=== PATIENT | female | born 1945 | race Caucasian/White ===

== ENCOUNTER → 2022-12-20 | Outpatient (CLI) | payer MEDICARE, BC ==
[~2022-12-20] MED LIST: ALPR0.5T7; CLIN-144; FURO20TA4; LEVO75TA; METO50TA15; ONDA8TAB13 PO; PANT40TA2 PO; POT
== END ==
LOC: CARD 13:05
PROVIDERS: ATTEND Nurse Practitioner Family
DX: J32.9 Chronic sinusitis, unspecified (principal)
CPT/HCPCS: 93005

== ENCOUNTER 2022-12-24 22:33 | Emergency (ER) | payer MEDICARE, BC ==
[2022-12-24] MEDS ORDERED: ALPR0.5T7 (23:07)
[2022-12-24] MEDS ORDERED: POT (23:07)
[2022-12-24] MEDS ORDERED: LEVO75TA (23:07)
[2022-12-24] MEDS ORDERED: FURO20TA4 (23:07)
[2022-12-24] MEDS ORDERED: CLIN-144 (23:07)
[2022-12-24] MEDS ORDERED: METO50TA15 (23:07)
[2022-12-24] MEDS ORDERED: ONDA8TAB13 PO (23:33)
[2022-12-24] MEDS ORDERED: PANT40TA2 PO (23:33)
== END 2022-12-24 22:46 | disposition left against medical advice (07) ==
LOC: EDUNIT# 22:33 → ER 22:34
DX: R10.9 Unspecified abdominal pain (principal)

== ENCOUNTER 2022-12-24 22:55 | Emergency (ER) | payer MEDICARE, BC ==
[~2022-12-24] VITALS: Ht 14.9 cm; Wt 65.8 kg
[2022-12-24] MEDS ORDERED: METO50TA15 (23:07)
[2022-12-24] MEDS ORDERED: CLIN-144 (23:07)
[2022-12-24] MEDS ORDERED: FURO20TA4 (23:07)
[2022-12-24] MEDS ORDERED: ALPR0.5T7 (23:07)
[2022-12-24] MEDS ORDERED: LEVO75TA (23:07)
[2022-12-24] MEDS ORDERED: POT (23:07)
[2022-12-24] MEDS ORDERED: ONDANSETRON 4 MG ORAL DISSOLVE TABLET SL STA (23:28)
[2022-12-24] MEDS ORDERED: LIDOCAINE 2% VISCOUS 15 ML UDC PO ONE (23:30)
[2022-12-24] MEDS ORDERED: ANTACID SUSPENSION 30 ML UDC PO ONE (23:30)
[2022-12-24] MEDS ORDERED: PANTOPRAZOLE 40 MG TABLET PO ONE (23:30)
[2022-12-24] MEDS ORDERED: PANT40TA2 PO (23:33)
[2022-12-24] MEDS ORDERED: ONDA8TAB13 PO (23:33)
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
[2022-12-25 00:08] VITALS: BP 146/99
== END 2022-12-25 00:08 | disposition home or self-care (01) ==
LOC: EDUNIT# 22:55 → ER 22:57
DX: R11.2 Nausea with vomiting, unspecified (principal); F41.9 Anxiety disorder, unspecified; F17.210 Nicotine dependence, cigarettes, uncomplicated; Z79.899 Other long term (current) drug therapy
CPT/HCPCS: 99283

== ENCOUNTER 2023-02-22 08:02 | Emergency (ER) | payer MEDICARE, BC ==
[~2023-02-22] VITALS: Ht 150 cm; Wt 43.0 kg
--- NOTE | 2023-02-22 08:12 | ED General ---
General Chief Complaint: General Problems/Pain Stated Complaint: STOMACH CRAMPS | WEAKNESS Source of Information: Patient Exam Limitations: No Limitations History of Present Illness Date Seen by Provider: Feb 22, 2023 Time Seen by Provider: 08:03 Initial Comments 77-year-old female presents the emergency department today for vomiting. She states symptoms started a couple days ago and corresponds to when she started taking antibiotics for urinary tract infection. She states that she always vomits when she takes antibiotics. She denies any fevers or chills but does have diffuse abdominal cramping. No focal abdominal tenderness. She is quite tearful during our history, exam. When asked why she is crying she states "I am scared." When asked what she is scared as she states "just all of it." Is having some mild dysuria. No changes in her bowels. No Vaginal symptoms All other systems reviewed and negative except documented per HPI. Voice recognition software was used to help create this chart Allergies and Home Medications Allergies Coded Allergies: Penicillins (Verified Allergy, Unknown, 12/25/22) aspirin (Verified Allergy, Unknown, 12/25/22) cyclosporine (Verified Allergy, Unknown, 12/25/22) Patient Home Medication List Home Medication List Reviewed: Yes Alprazolam (Alprazolam) 0.5 Mg Tablet, (Reported) Entered as Reported by: FRANCES BRIGHT on 12/24/222306 Clindamycin HCl (Clindamycin HCl) 300 Mg Capsule, (Reported) Entered as Reported by: FRANCES BRIGHT on 12/24/222306 Furosemide (Furosemide) 20 Mg Tablet, (Reported) Entered as Reported by: FRANCES BRIGHT on 12/24/222306 Levothyroxine Sodium (Synthroid) 75 Mcg Tablet, (Reported) Entered as Reported by: FRANCES BRIGHT on 12/24/222306 Metoprolol Tartrate (Metoprolol Tartrate) 50 Mg Tablet, (Reported) Entered as Reported by: FRANCES BRIGHT on 12/24/222306 Ondansetron (Ondansetron Odt) 8 Mg Tab.rapdis, 8 MG PO Q6H Prescribed by: CARLIE LE on 12/24/222332 Ondansetron (Ondansetron Odt) 8 Mg Tab.rapdis, 8 MG SL Q6H PRN for NAUSEA/VOMITING Prescribed by: ANDRE JI MD on 02/22/23 0901 Pantoprazole Sodium (Protonix) 40 Mg Tablet.dr, 40 MG PO DAILY Prescribed by: CARLIE LE on 12/24/22 6133 [Pot] , (Reported) Entered as Reported by: FRANCES BRIGHT on 12/24/22 2307 Review of Systems Review of Systems Constitutional: see HPI Past Msuiafe-Lixwxm-Witwwx Hx Patient Social History Tobacco Use?: No Use of E-Cig and/or Vaping dev: No Substance use?: No Alcohol Use?: No Physical Exam Vital Signs Vital Signs - First Documented 02/22/23 08:06 Temp 36.5 Pulse 110 Resp 22 B/P (MAP) 165/108 (127) Pulse Ox 96 O2 Delivery Room Air Capillary Refill : Height, Weight, BMI Height: '" Weight: lbs. oz. kg; 2963.00 BMI Method: General Appearance: No Apparent Distress, WD/WN HEENT: Normal ENT Inspection, Pharynx Normal Neck: Non Tender, Supple Respiratory: Chest Non Tender, Lungs Clear, Normal Breath Sounds Cardiovascular: Regular Rate, Rhythm, No Murmur, Normal Peripheral Pulses Gastrointestinal: Normal Bowel Sounds, No Organomegaly, Non Tender, Soft Extremity: Normal Capillary Refill, Non Tender, No Calf Tenderness Neurologic/Psychiatric: Alert, Oriented x3, No Motor/Sensory Deficits, Normal Mood/Affect, helicopter specialist II-XII Norm as Tested Skin: Normal Color, Warm/Dry Progress/Results/Core Measures Suspected Sepsis SIRS Temperature: Pulse: Respiratory Rate: Laboratory Tests 02/22/23 08:10: White Blood Count 12.6H Blood Pressure / Mean: Laboratory Tests 02/22/23 08:10: Creatinine 0.68, Platelet Count 188, Total Bilirubin 0.4 Results/Orders Lab Results Laboratory Tests Test 02/22/23 08:10 Range/Units White Blood Count 12.6 H 4.3-11.0 10^3/uL Red Blood Count 4.79 3.80-5.11 10^6/uL Hemoglobin 14.7 11.5-16.0 g/dL Hematocrit 43 35-52 % Mean Corpuscular Volume 89 80-99 fL Mean Corpuscular Hemoglobin 31 25-34 pg Mean Corpuscular Hemoglobin Concent 34 32-36 g/dL Red Cell Distribution Width 14.1 10.0-14.5 % Platelet Count 188 130-400 10^3/uL Mean Platelet Volume 10.2 9.0-12.2 fL Immature Granulocyte % (Auto) 1 % Neutrophils (%) (Auto) 83 H 42-75 % Lymphocytes (%) (Auto) 11 L 12-44 % Monocytes (%) (Auto) 4 0-12 % Eosinophils (%) (Auto) 0 0-10 % Basophils (%) (Auto) 0 0-10 % Neutrophils # (Auto) 10.4 H 1.8-7.8 10^3/uL Lymphocytes # (Auto) 1.4 1.0-4.0 10^3/uL Monocytes # (Auto) 0.5 0.0-1.0 10^3/uL Eosinophils # (Auto) 0.1 0.0-0.3 10^3/uL Basophils # (Auto) 0.0 0.0-0.1 10^3/uL Immature Granulocyte # (Auto) 0.1 0.0-0.1 10^3/uL Sodium Level 135 135-145 MMOL/L Potassium Level 4.0 3.6-5.0 MMOL/L Chloride Level 101 98-107 MMOL/L Carbon Dioxide Level 22 21-32 MMOL/L Anion Gap 12 5-14 MMOL/L Blood Urea Nitrogen 13 7-18 MG/DL Creatinine 0.68 0.60-1.30 MG/DL Estimat Glomerular Filtration Rate 89 BUN/Creatinine Ratio 19 Glucose Level 120 H 70-105 MG/DL Calcium Level 9.6 8.5-10.1 MG/DL Corrected Calcium 9.4 8.5-10.1 MG/DL Total Bilirubin 0.4 0.1-1.0 MG/DL Aspartate Amino Transf (AST/SGOT) 25 5-34 U/L Alanine Aminotransferase (ALT/SGPT) 30 0-55 U/L Alkaline Phosphatase 88 40-136 U/L Total Protein 8.0 6.4-8.2 GM/DL Albumin 4.2 3.2-4.5 GM/DL Lipase 12 8-78 U/L My Orders Orders - ANDRE JI DO Comprehensive Metabolic Panel (02/22/23 08:12) Lipase (02/22/23 08:12) Cbc And Automated Diff (02/22/23 08:12) Ondansetron Injection (Ondansetron Inj (02/22/23 08:15) Ns Iv 1000 Ml (Ns Iv 1000 Ml) (02/22/23 08:15) Iv/Invasive Line Insertion .IV INSERT (02/22/23 08:13) Medications Given in ED Vital Signs/I&O 02/22/23 02/22/23 08:06 09:08 Temp 36.5 36.5 Pulse 110 90 Resp 22 18 B/P (MAP) 165/108 (127) 157/105 Pulse Ox 96 96 O2 Delivery Room Air Room Air Capillary Refill : Departure Communication (Admissions) Patient is hemodynamically stable, nontoxic in appearance with a benign exam, normal vital signs. Labs are reassuring. She is given some IV fluids and Zofran is tolerating p.o. prior to discharge. She has this happens to her every time she takes antibiotics we will go ahead and give her Zofran which she is to take 20 to 30 minutes prior to administration of antibiotics I did advise she take antibiotics on a full stomach. She states understanding and is discharged in stable condition Impression Primary Impression: Nausea & vomiting Qualified Codes: R11.2 - Nausea with vomiting, unspecified Disposition: 01 HOME, SELF-CARE Condition: Stable Departure-Patient Inst. Referrals: DYLAN FIELD MD (PCP/Family) Primary Care Physician Patient Instructions: Nausea and Vomiting, Adult (DC) Add. Discharge Instructions: Were seen in the emergency department today generally feeling unwell with nausea and vomiting. I do believe that this is related to your antibiotic use. I provided you a prescription for nausea medicine which you should take 20 to 30 minutes prior to taking antibiotics and is always be sure to take antibiotics with food and not on an empty stomach to help prevent this side effect. Increase your fluids at home and rest. Your labs, vital signs and exam are quite reassuring. Return to the emergency department for any severe concerns. Follow-up with your primary doctor for any nonemergent needs All discharge instructions reviewed with patient and/or family. Voiced un derstanding. Scripts Ondansetron (Ondansetron Odt) 8 Mg Tab.rapdis 8 MG SL Q6H PRN for NAUSEA/VOMITING for 3 Days, #12 TAB Prov: ANDRE JI DO 02/22/23 ANDRE JI DO Feb 22, 2023 08:12
[2023-02-22] MEDS ORDERED: ONDANSETRON INJECTION 4 MG/2 ML (SDV) IVP ONE (08:15)
[2023-02-22] MEDS ORDERED: NS IV 1000 ML 1,000 ML IV SCH (08:15)
[2023-02-22 08:18] LABS: BASOPHILS % (AUTO) 0 % (0-10); EOSINOPHILS # (AUTO) 0.1 10^3/uL (0.0-0.3); EOSINOPHILS % (AUTO) 0 % (0-10); HEMATOCRIT 43 % (35-52); HEMOGLOBIN 14.7 g/dL (11.5-16.0); LYMPHOCYTES # (AUTO) 1.4 10^3/uL (1.0-4.0); LYMPHOCYTES % (AUTO) 11 % (12-44); MEAN CORPUSCULAR HEMOGLOBIN 31 pg (25-34); MEAN CORPUSCULAR HGB CONC 34 g/dL (32-36); MEAN CORPUSCULAR VOLUME 89 fL (80-99); MEAN PLATELET VOLUME 10.2 fL (9.0-12.2); MONOCYTES # (AUTO) 0.5 10^3/uL (0.0-1.0); MONOCYTES % (AUTO) 4 % (0-12); NEUTROPHILS # (AUTO) 10.4 10^3/uL (1.8-7.8); NEUTROPHILS % (AUTO) 83 % (42-75); PLATELET COUNT 188 10^3/uL (130-400); WHITE BLOOD COUNT 12.6 10^3/uL (4.3-11.0)
[2023-02-22 08:31] LABS: ALBUMIN 4.2 GM/DL (3.2-4.5)
[2023-02-22 08:32] LABS: CALCIUM 9.6 MG/DL (8.5-10.1)
[2023-02-22 08:35] LABS: BILIRUBIN,TOTAL 0.4 MG/DL (0.1-1.0)
[2023-02-22 08:37] LABS: CREATININE SERUM 0.68 MG/DL (0.60-1.30)
[2023-02-22] MEDS ORDERED: ONDA8TAB13 SL (09:01)
[2023-02-22 09:08] VITALS: BP 157/105
== END 2023-02-22 09:07 | disposition home or self-care (01) ==
LOC: EDUNIT# 08:02 → ER 08:04
DX: R11.2 Nausea with vomiting, unspecified (principal); N39.0 Urinary tract infection, site not specified
CPT/HCPCS: 36415; 80053; 83690; 85025; 96361; 96374